=== PATIENT | male | born 1950 ===

== ENCOUNTER 2024-04-01 08:16 | Inpatient (IN) | payer OTHER, SELFPAY ==
[2024-04-01] VITALS (14 sets, daily range): BP systolic 99–137; BP diastolic 59–82; PULSE 91–92; O2SAT 95–96; BMI 26.7
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
[2024-04-01 08:20] LABS: Glucose - Point of Care 134 mg/dl (70-99)
[2024-04-01] MEDS: MOBIC 15 MG PO (08:40)
[2024-04-01] MEDS: TYLENOL 1000 MG PO (08:40)
--- NOTE | 2024-04-01 08:47 | PTCARENOTE ---
Med list done by Tiff JUAREZ.
[2024-04-01] MEDS: BACTROBAN NASAL 1 GRAM NASAL (08:52)
--- NOTE | 2024-04-01 08:59 | PTCARENOTE ---
Patient from [facility]. Patient came in with wheelchair and it was sent to PACU to travel up to a room with patient post op.
[2024-04-01 13:55] LABS: Glucose - Point of Care 157 mg/dl (70-99)
--- NOTE | 2024-04-01 14:57 | PTCARENOTE ---
Patient admitted from Pacu post left total shoulder replacement.Patient denies any pain.The Primaseal dressing is intact without drainage.Neurovascular assessment is within normal limits and ongoing.Vital signs are stable.The patient is in his bed
with the call aponte in reach.
[2024-04-01] MEDS: NSS 1000 IV (15:56)
[2024-04-01] MEDS: GLUCOPHAGE 500 MG PO (15:57)
[2024-04-01] MEDS: TYLENOL 650 MG PO ×2 (15:57→20:04)
[2024-04-01 17:19] LABS: Glucose - Point of Care 301 mg/dl (70-99)
[2024-04-01] MEDS: ANCEF 5 IV (17:25)
[2024-04-01] MEDS: QUESTRAN 4 GRAM PO (17:25)
[2024-04-01] MEDS: NOVOLOG FLEXPEN-MODERATE RESISTANCE 7 UNITS SC (17:26)
[2024-04-01] MEDS: ASPIRIN 325 MG PO (17:26)
[2024-04-01] MEDS: SENOKOT 17.2 MG PO (20:03)
[2024-04-01] MEDS: COLACE 100 MG PO (20:04)
[2024-04-01] MEDS: BACTROBAN 2% OINTMENT 1 APPLIC NASAL (20:04)
[2024-04-01] MEDS: NEURONTIN 300 MG PO (20:04)
[2024-04-01] MEDS: FEOSOL 325 MG PO (20:04)
[2024-04-01] MEDS: TORADOL 10 MG IV (20:13)
[2024-04-01 21:33] LABS: Glucose - Point of Care 222 mg/dl (70-99)
[2024-04-02] MEDS: TYLENOL 650 MG PO ×3 (00:06→13:42)
[2024-04-02] MEDS: ANCEF 5 IV (02:08)
[2024-04-02 03:56] VITALS: BP 132/73
[2024-04-02] MEDS: TYLENOL PO (04:26)
[2024-04-02 07:14] LABS: Glucose - Point of Care 134 mg/dl (70-99)
[2024-04-02 07:30] VITALS: BP 120/67
[2024-04-02] MEDS: NOVOLOG FLEXPEN-MODERATE RESISTANCE SC (07:54)
[2024-04-02] MEDS: VITAMIN B1 100 MG PO (07:54)
[2024-04-02] MEDS: GLUCOPHAGE 500 MG PO (07:55)
[2024-04-02] MEDS: ASPIRIN 325 MG PO (07:55)
[2024-04-02] MEDS: FEOSOL 325 MG PO (07:55)
[2024-04-02] MEDS: NEURONTIN 300 MG PO (07:55)
[2024-04-02] MEDS: SENOKOT PO ×2 (07:55→08:05)
[2024-04-02] MEDS: FOLVITE 0.5 MG PO (07:56)
[2024-04-02] MEDS: MOBIC 15 MG PO (07:57)
[2024-04-02] MEDS: BACTROBAN 2% OINTMENT 1 APPLIC NASAL (07:58)
[2024-04-02] MEDS: COLACE PO ×2 (07:58→08:05)
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
[2024-04-02 11:08] VITALS: BP 131/70; PULSE 83; O2SAT 96
[2024-04-02 11:20] VITALS: BP 136/68
[2024-04-02 11:30] VITALS: BP 124/70
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
--- NOTE | 2024-04-02 13:32 | W.DS.TRANS ---
DC Summary - Cotton Weigher
-
Discharge Instructions:
Sleep Apnea Risk Intermediate
Discharge Diagnosis/Procedures Closed displaced fracture of proximal end of
left humerus s/p L Reverse TSA w/ Dr Drake
24
Diet Regular,Other diet
Additional Diets Minimize carbohydrates for next 4-6 weeks to aid
in wound healing.
Activity As tolerated
Additional Activity Non-weightbearing left upper extremity. Continue
toe touch weightbearing to left lower extremity.
Driving Restrictions No driving
Bathing Restrictions OK to Shower
Other Services PT,OT
Wound Care Leave dressing on until seen by surgeon's office
in 2 weeks.
Instructions:
Stand-Alone Forms: Total Shoulder Replacement D/C
Changes to Home Medications: Yes
Discharge Medications:
DC Medications w/original date entered in [employer]
cholestyramine (with sugar) 4 gram oral powder (Questran) 4 g PO QPM 03/28/24
ferrous sulfate 325 mg (65 mg iron) tablet 325 mg PO BID 03/28/24
metformin 500 mg tablet 500 mg PO DAILY 03/28/24
acetaminophen 325 mg tablet 650 mg (2 x 325 mg) PO Q4HWA #60 tabs 04/02/24
aluminum-mag hydroxide-simethicone 200 mg-200 mg-20 mg/5 mL oral susp 30 ml PO Q6H PRN Indigestion #0 mL 04/02/24
amlodipine 10 mg tablet 10 mg PO DAILY #1 tab 04/02/24
aspirin 325 mg tablet 325 mg PO DAILY Blood clot prevention/tx #30 tabs 04/02/24
docusate sodium 100 mg capsule 100 mg PO BID PRN constipation #30 caps 04/02/24
gabapentin 300 mg capsule 300 mg PO BID neuropathic pain #0 caps 04/02/24
losartan 100 mg tablet 100 mg PO DAILY #1 tab 04/02/24
meloxicam 15 mg tablet 15 mg PO DAILY Anti-inflammatory #14 tabs 04/02/24
ondansetron HCl 4 mg tablet 4 mg PO Q6H PRN nausea and vomiting #30 tabs 04/02/24
oxycodone 5 mg tablet 5 - 10 mg (1 - 2 x 5 mg) PO Q6H PRN moderate-severe pain #15 tabs 04/02/24
sennosides 8.6 mg tablet (Senna Laxative) 17.2 mg (2 x 8.6 mg) PO BID PRN constipation #30 tabs 04/02/24
Home Medication Changes
acetaminophen 325 mg tablet 650 mg (2 x 325 mg) PO Q4HWA #60 tabs 04/02/24
aspirin 325 mg tablet 325 mg PO DAILY Blood clot prevention/tx #30 tabs 04/02/24
docusate sodium 100 mg capsule 100 mg PO BID PRN constipation #30 caps 04/02/24
gabapentin 300 mg capsule 300 mg PO BID neuropathic pain #0 caps 04/02/24
meloxicam 15 mg tablet 15 mg PO DAILY Anti-inflammatory #14 tabs 04/02/24
ondansetron HCl 4 mg tablet 4 mg PO Q6H PRN nausea and vomiting #30 tabs 04/02/24
oxycodone 5 mg tablet 5 - 10 mg (1 - 2 x 5 mg) PO Q6H PRN moderate-severe pain #15 tabs 04/02/24
sennosides 8.6 mg tablet (Senna Laxative) 17.2 mg (2 x 8.6 mg) PO BID PRN constipation #30 tabs 04/02/24
Pending Results: No
--- NOTE | 2024-04-04 09:51 | CM ---
TC from [facility]hs[facility] Blum
Approved skilled level 1
Reference # [id number]
Start date 04/03/24, LCD 04/07/24, NRD 04/08/24
Updates to Ashlee Soni P# [phone], fax# [phone]
TC to [facility]abel[facility] p# [phone] and auth provided.
== END 2024-04-02 14:54 | DRG 483 ==
LOC: 2 SOUTH 08:16
PROVIDERS: ADMITTING PHYSICIAN Specialist
PROC: 0RRK00Z Replacement of Left Shoulder Joint with Reverse Ball and Socket Synthetic Substitute, Open Approach (ICD-10-PCS; 2024-04-01)
DX: S42.292A Other displaced fracture of upper end of left humerus, initial encounter for closed fracture (principal); E87.1 Hypo-osmolality and hyponatremia; Z96.653 Presence of artificial knee joint, bilateral; I10 Essential (primary) hypertension; E11.40 Type 2 diabetes mellitus with diabetic neuropathy, unspecified; D50.9 Iron deficiency anemia, unspecified; I45.10 Unspecified right bundle-branch block; D75.839 Thrombocytosis, unspecified; E11.51 Type 2 diabetes mellitus with diabetic peripheral angiopathy without gangrene; V03.90XA Pedestrian on foot injured in collision with car, pick-up truck or van, unspecified whether traffic or nontraffic accident, initial encounter; Z79.84 Long term (current) use of oral hypoglycemic drugs; Z95.820 Peripheral vascular angioplasty status with implants and grafts; Z88.2 Allergy status to sulfonamides
CPT/HCPCS: 73020; 82962; 87070; 97163; 97167; 97530; 97535; 97542